=== PATIENT | female | born 1980 | race Caucasian/White ===

== ENCOUNTER 2020-08-29 05:34 | Day surgery (SDC) | payer BC ==
[~2020-08-29] VITALS: Ht 152.4 cm; Wt 54.4 kg
--- NOTE | ~2020-08-29 | OP ---
PATIENT NAME: SARAH WHITE MEDICAL RECORD: [id number] :80 LOCATION:D.OPS ADMISSION DATE: SURGEON: VANESSA MATTHEWS DPM DATE OF OPERATION: 08/29/2020 PREOPERATIVE DIAGNOSES: 1. Hallux abducto valgus, left foot. 2. Instability, left first met cuneiform joint. POSTOPERATIVE DIAGNOSES: 1. Hallux abducto valgus, left foot. 2. Instability, left first met cuneiform joint. PROCEDURES: 1. Left Mg bunionectomy. 2. Left first met cuneiform joint fusion. ANESTHESIA: Preoperative popliteal block per the anesthesia department as well as intraoperative general anesthesia. HEMOSTASIS: Left thigh tourniquet at 350 mmHg. DESCRIPTION OF PROCEDURE: The patient was taken to the OR and placed on the operating table in a supine position followed by induction of general anesthesia. The left extremity was then prepped and draped in the usual aseptic technique followed by exsanguination and inflation of the tourniquet. A 15 blade was used to create an incision on the dorsal aspect of the medial cuneiform distally to the base of the proximal phalanx of the hallux. The incision was deepened down through subcutaneous tissue, being sure to avoid all vital structures. Dissection was carried down to the first MPJ where an inverted L capsulotomy was performed. The medial capsular flap was reflected and the head of the first metatarsal was delivered. A sagittal saw was used to resect the medial eminence. Attention was directed to the first interspace where a lateral release was performed. PROCEDURE #2: Left first met cuneiform joint fusion. The incision as described above was utilized and dissection was carried down through the periosteum to the first met cuneiform joint. The joint was exposed. A sagittal saw was used to resect the joint. Temporary fixation was placed and a 5-hole plate with one screw passing through the plate across the fusion site was placed with excellent rigid internal fixation and alignment of the first ray. C-arm was used to verify good placement. The wound was flushed. The deep tissue and joint capsule were repaired with 2-0 Vicryl. The subcutaneous tissue was reapproximated with 4-0 Rapide and the skin was closed with 4-0 Rapide in a subcuticular technique followed by Dermabond, Adaptic, 4 x 4 and conform were used to dress the wound followed by a modified Dill compression dressing. The tourniquet was deflated. POSTOPERATIVE DETAILS: The patient tolerated the procedure well and left the OR with vital signs stable and vascular status at preoperative levels. The patient was transferred to recovery per anesthesia in stable condition. TRANSINT:[id number] Voice Confirmation ID: [id number] DOCUMENT ID: [id number] OPERATIVE REPORT [id number] SARAH WHTIE MCKAY DPM CC: [id number] DICTATION DATE: 08/29/20926 [employer] SURVEYOR: 08/29/20 13[address] [facility] [place] 08/29/20 [facility] [address] [place] [address]
[~2020-08-29 05:34] MED LIST: ADDERALL 20 MG20 M1 PO; ERGOCALCIF50000 UNIT PO; XANAX0.5 MG PO
[2020-08-29 06:22] LABS: HEMATOCRIT 38.1 % (36.0-48.0); HEMOGLOBIN 12.8 g/dL (12-16); MCH 29.2 pg (26.0-34.0); MCHC 33.6 g/dL (31.0-37.0); MEAN PLATELET VOLUME 9.2 fL (7.4-10.4); RBC 4.38 10x6/uL (4.00-5.40); RDW 12.2 % (11.5-14.5); WBC 6.8 10x3/uL (4.8-10.8)
[2020-08-29 06:38] LABS: HCG SERUM NEGATIVE (NEGATIVE)
[2020-08-29 06:59] VITALS: BP 116/68; Ht 152.4 cm; Wt 54.4 kg
--- NOTE | 2020-08-29 07:12 | NUR ---
0698 PT HAS A LIFETIME POSITIVE SCREENING FOR SUICIDE. PT STATES IT WAS 2 YEARS AGO AND SHE SOUGHT PSYCHIATRIC CARE. SHE IS NO LONGER BEING SEEN FOR THIS SITUATION AND PT REFUSES TO BE SEEN BY BEHAVIORAL HEALTH NURSE
--- NOTE | 2020-08-29 09:45 | NUR ---
8642 ICE PACK PROVIDED AND PILLOW FOR ELEVATION. FAMILY AT SIDE.
== END 2020-08-29 10:45 | disposition home or self-care (01) ==
LOC: D.OPS 05:34
PROVIDERS: Anesthesiology; ATTEND Podiatrist
DX: M20.12 Hallux valgus (acquired), left foot (principal); M25.30 Other instability, unspecified joint